=== PATIENT | female | born 1935 | race African-American/Black ===

== ENCOUNTER 2021-12-30 18:20 | Observation (INO) | payer OTHER, BC ==
[2021-12-30 21:30] LABS: BASO % 0.8 % (0-2.0); EOS % 3.5 % (0-4.5); HEMATOCRIT 35.1 % (32.4-45.2); HEMOGLOBIN 11.5 GM/dL (10.7-15.3); MCH 28.2 pg (25.7-33.7); MCHC 32.9 g/dl (32.0-36.0); MEAN CELL VOLUME 85.7 fl (80-96); MEAN PLT VOLUME 8.5 fl (7.5-11.1); NEUT % 45.7 % (42.8-82.8); PLATELET COUNT 347 10^3/uL (134-434); RBC 4.09 M/mm3 (3.60-5.2); RDW 13.4 % (11.6-15.6)
[2021-12-30 21:49] LABS: CALCIUM 9.4 mg/dL (8.5-10.1)
[2021-12-30 21:50] LABS: ALBUMIN 3.4 g/dl (3.4-5.0)
[2021-12-30 21:53] LABS: CREATININE 1.5 mg/dL (0.55-1.3)
[2021-12-30 21:53] LABS: EPI CELLS 15 /uL (0-25.1); HYALINE CASTS 1 /uL (0-3.1); PH,URINE 5.5 (5.0-8.0); URINE APPEARANCE CLEAR; URINE BACTERIA 72 /uL (0-1359); URINE BILIRUBIN NEGATIVE (NEGATIVE); URINE COLOR YELLOW; URINE GLUCOSE (UA) NEGATIVE (NEGATIVE); URINE KETONE NEGATIVE (NEGATIVE); URINE LEUK ESTERASE 2+ (NEGATIVE); URINE NITRITE NEGATIVE (NEGATIVE); URINE PROTEIN 1+ (NEGATIVE); URINE RBC 7 /uL (0-23.9); URINE UROBILINOGEN 0.2 mg/dL (0.2-1.0); URINE WBC 70 /uL (0-25.8)
[2021-12-30 21:55] LABS: BILIRUBIN,TOTAL 0.9 mg/dL (0.2-1)
[2021-12-30] MEDS ORDERED: CEFTRIAXONE 1,000 MG in DEXTROSE 5%-WATER - 50 ML IVPB ONE (23:31)
[2021-12-30] MEDS ORDERED: CEFTRIAXONE 1 GM/50 ML BAG ONE (23:53)
[2021-12-31] MEDS ORDERED: POLYETHYLENE GLYCOL (HEALTHYLAX) 3350 17 GM PACKET PO PRN (00:03)
[2021-12-31 03:43] VITALS: BMI 20.5
[2021-12-31] MEDS: HEPARIN NA (PORCINE) 5,000 UNITS/ML 1ML VIAL SQ SCH ×3 (06:03→22:00)
[2021-12-31] MEDS: busPIRone HCL 10 MG TABLET (FP) PO SCH ×2 (09:49→21:35)
[2021-12-31] MEDS: MONTELUKAST NA 10 MG TABLET PO SCH (09:49)
[2021-12-31] MEDS: DONEPEZIL HCL 5 MG TABLET (FP) PO SCH (09:49)
[2021-12-31] MEDS ORDERED: ASPIRIN 81 MG CHEWABLE TABLETS PO SCH (10:00)
[2021-12-31] MEDS ORDERED: SODIUM CHLORIDE 1,000 ML IV SCH (10:30)
[2021-12-31 10:41] LABS: BASO % 1.4 % (0-2.0); HEMATOCRIT 35.8 % (32.4-45.2); HEMOGLOBIN 11.9 GM/dL (10.7-15.3); LYMPH % 35.8 % (8-40); MCH 28.3 pg (25.7-33.7); MCHC 33.3 g/dl (32.0-36.0); MEAN CELL VOLUME 84.8 fl (80-96); MEAN PLT VOLUME 8.2 fl (7.5-11.1); MONO % 6.6 % (3.8-10.2); NEUT % 52.2 % (42.8-82.8); PLATELET COUNT 322 10^3/uL (134-434); RBC 4.21 M/mm3 (3.60-5.2); WHITE BLOOD COUNT 4.9 K/mm3 (4.0-10.0)
[2021-12-31 11:01] LABS: INR 1.07 (0.83-1.09); PROTHROMBIN TIME (PATIENT) 12.3 SEC (9.7-13.0)
[2021-12-31 11:03] LABS: ACTIVATED PTT 33.7 SECONDS (25.2-36.5)
[2021-12-31 11:09] LABS: BLOOD UREA NITROGEN 10.8 mg/dL (7-18); CALCIUM 9.5 mg/dL (8.5-10.1); CHOLESTEROL 167 mg/dL (50-200); MAGNESIUM 2.5 mg/dL (1.8-2.4)
[2021-12-31 11:10] LABS: LDL CHOLESTEROL (ONLY SJRH) 93 mg/dL (5-100); TRIGLYCERIDES 133 mg/dL (0-150)
[2021-12-31 11:12] LABS: CREATININE 1.4 mg/dL (0.55-1.3); HDL CHOLESTEROL 55 mg/dL (40-60); PHOSPHOROUS 3.2 mg/dL (2.5-4.9)
[2021-12-31] MEDS: ACETAMINOPHEN 325 MG TABLET (FP) PO PRN ×2 (16:21→21:35)
[2021-12-31] MEDS ORDERED: amLODIPine BESYLATE 5 MG TABLET (FP) PO ONE (22:00)
[2022-01-01] MEDS ORDERED: cefTRIAXone SODIUM 1 GM VIAL ONE ×2 (02:48→21:25)
[2022-01-01] MEDS ORDERED: DEXTROSE 5%-WATER - 50 ML IVPB ONE ×2 (02:48→21:25)
[2022-01-01] MEDS: CEFTRIAXONE 1 GM in DEXTROSE 5%-WATER - 50 ML IVPB SCH ×2 (02:52→21:41)
[2022-01-01] MEDS: HEPARIN NA (PORCINE) 5,000 UNITS/ML 1ML VIAL SQ SCH ×3 (05:59→21:43)
[2022-01-01] MEDS ORDERED: hydrALAZINE HCL 10 MG TABLET PO ONE (09:00)
[2022-01-01] MEDS: LACTULOSE 20 GM/30 ML UDC (FOR ORAL USE ONLY) PO SCH (09:56)
[2022-01-01] MEDS: ASPIRIN COATED 81 MG TABLET.EC PO SCH (09:57)
[2022-01-01] MEDS: MONTELUKAST NA 10 MG TABLET PO SCH (09:57)
[2022-01-01] MEDS: busPIRone HCL 10 MG TABLET (FP) PO SCH ×2 (09:57→21:42)
[2022-01-01] MEDS: DONEPEZIL HCL 5 MG TABLET (FP) PO SCH (09:57)
[2022-01-01] MEDS ORDERED: LORATADINE 10 MG TABLET PO SCH (10:00)
[2022-01-01] MEDS ORDERED: ATORVASTATIN CA 10 MG TABLET (FP) PO SCH ×3 (10:00→22:00)
[2022-01-01 12:16] LABS: HEMATOCRIT 36.3 % (32.4-45.2); HEMOGLOBIN 12.4 GM/dL (10.7-15.3); MCH 28.6 pg (25.7-33.7); MCHC 34.2 g/dl (32.0-36.0); MEAN CELL VOLUME 83.6 fl (80-96); MEAN PLT VOLUME 8.2 fl (7.5-11.1); PLATELET COUNT 324 10^3/uL (134-434); RBC 4.34 M/mm3 (3.60-5.2); RDW 13.2 % (11.6-15.6); WHITE BLOOD COUNT 4.8 K/mm3 (4.0-10.0)
[2022-01-01] MEDS ORDERED: GLYCERIN 1 RECTAL SUPPOSITORY, ADULT RC ONE (12:30)
[2022-01-01] MEDS ORDERED: cloNIDine HCL 0.1 MG TABLET PO SCH ×3 (12:43→22:00)
[2022-01-01 12:44] LABS: BLOOD UREA NITROGEN 9.8 mg/dL (7-18); CALCIUM 9.7 mg/dL (8.5-10.1)
[2022-01-01 12:48] LABS: CREATININE 1.4 mg/dL (0.55-1.3)
[2022-01-01] MEDS: ACETAMINOPHEN 325 MG TABLET (FP) PO PRN ×2 (13:41→21:53)
[2022-01-01] MEDS: LOSARTAN POTASSIUM 50 MG TABLET PO SCH (13:42)
[2022-01-01] MEDS ORDERED: LABETALOL HCL 5 MG/1 ML (100MG/20 ML VIAL) IVPUSH PRN (17:45)
[2022-01-01] MEDS ORDERED: cloNIDine HCL 0.1 MG TABLET PO ONE (18:27)
[2022-01-01] MEDS: cloNIDine HCL 0.1 MG TABLET PO SCH (21:36)
[2022-01-01] MEDS: QUEtiapine FUMARATE 25 MG TABLET PO SCH (21:37)
[2022-01-01] MEDS ORDERED: LABETALOL HCL 200 MG TABLET (FP) PO SCH (22:00)
[2022-01-01] MEDS ORDERED: ATORVASTATIN CA 20 MG TABLET (FP) PO SCH (22:00)
[2022-01-02] MEDS: HEPARIN NA (PORCINE) 5,000 UNITS/ML 1ML VIAL SQ SCH ×2 (06:59→14:34)
[2022-01-02] MEDS ORDERED: SODIUM CHLORIDE 0.45% 1,000 ML IV SCH (08:15)
[2022-01-02] MEDS: LACTULOSE 20 GM/30 ML UDC (FOR ORAL USE ONLY) PO SCH (09:21)
[2022-01-02] MEDS: LOSARTAN POTASSIUM 50 MG TABLET PO SCH (09:22)
[2022-01-02] MEDS: cloNIDine HCL 0.1 MG TABLET PO SCH (09:23)
[2022-01-02] MEDS: QUEtiapine FUMARATE 25 MG TABLET PO SCH (09:24)
[2022-01-02] MEDS: MONTELUKAST NA 10 MG TABLET PO SCH (09:24)
[2022-01-02] MEDS: busPIRone HCL 10 MG TABLET (FP) PO SCH (09:25)
[2022-01-02] MEDS: ASPIRIN COATED 81 MG TABLET.EC PO SCH (09:25)
[2022-01-02] MEDS: DONEPEZIL HCL 5 MG TABLET (FP) PO SCH (09:25)
[2022-01-02 15:36] VITALS: BP 135/58; PULSE 64; TEMP 99
== END 2022-01-02 18:39 | disposition home or self-care (01) ==
LOC: JER 18:20 → JERBED 12-31 00:09 → J4W 12-31 03:01
PROVIDERS: ADMIT Hospitalist; ATTEND Internal Medicine
PROC: 3E03329 Introduction of Other Anti-infective into Peripheral Vein, Percutaneous Approach (ICD-10-PCS; principal; 2021-12-31)
PROC: 3E023GC Introduction of Other Therapeutic Substance into Muscle, Percutaneous Approach (ICD-10-PCS; 2021-12-31)
PROC: 3E0337Z Introduction of Electrolytic and Water Balance Substance into Peripheral Vein, Percutaneous Approach (ICD-10-PCS; 2021-12-31)
DX: N39.0 Urinary tract infection, site not specified (principal); I16.0 Hypertensive urgency; F03.90 Unspecified dementia, unspecified severity, without behavioral disturbance, psychotic disturbance, mood disturbance, and anxiety; N17.9 Acute kidney failure, unspecified; G45.9 Transient cerebral ischemic attack, unspecified; Z86.79 Personal history of other diseases of the circulatory system; R41.82 Altered mental status, unspecified; G93.41 Metabolic encephalopathy
CPT/HCPCS: 36415; 70450-TC; 70544-TC; 70551-TC; 71046-TC-FY; 80048; 80053; 80061; 81003; 82962; 83735; 84100; 84443; 84484; 85025; 85027; 85610; 85730; 87086; 87186; 93005; 93010; 96361; 96365; 96372; 96375; 97116-GP; 97162-GP; 99285-25; C9803-CS; G0378; J0735; J1644; U0003; U0005